=== PATIENT | female | born 1980 | race Caucasian/White ===

== ENCOUNTER 2019-02-13 12:33 | Emergency (ER) | payer OTHER ==
[2019-02-13 14:32] VITALS: BP 110/65
--- NOTE | 2019-02-13 14:32 | EDPHY ---
H & P Stated Complaint: 12 week , vaginal bleeding 1 day Time Seen by Provider: 02/13/19 12:48 HPI/ROS: This is O positive patient presents with vaginal bleeding with a first- trimester 11 weeks by dates with no OB evaluation or ultrasound so far. She reports onset of mild spotting yesterday followed by heavy bleeding today similar to menses with some dark appearing clots as well. She has not passed any tissue. She reports cramping that she ranks as 5/10 intensity and has not taken any medications for this. She is concerned about demise as she noticed that she lost breast tenderness about a week ago. She is accompanied by her today who brought her in by private vehicle for evaluation. ROS: Constitutional: No fevers HEENT: No complaints Pulmonary: No complaints Cardiovascular: No lightheadedness. GI: No nausea or vomiting : As per HPI. No other complaints. 10 point review of symptoms is performed and otherwise negative with exception of pertinent positives and negatives listed in HPI and ROS Source: Patient Exam Limitations: No limitations - Personal History LMP (Females 10-55): - Medical/Surgical History Hx Asthma: No Hx Chronic Respiratory Disease: No Hx Diabetes: No Hx Cardiac Disease: No Hx Renal Disease: No Hx Cirrhosis: No Hx Alcoholism: No Hx HIV/AIDS: No Hx Splenectomy or Spleen Trauma: No Other PMH: none. Patient has an appointment to see MIKI Woodall at [facility] this coming Saturday in 3 days. - Family History Significant Family History: No pertinent family hx - Social History Smoking Status: Current every day smoker (Patient was smoking half pack a day prior to learning that she was cut down to about 3-5 cigarettes a day thereafter) Alcohol Use: None Drug Use: None Additional Social History: The patient is a originally from [facility] and moved here 2 years ago. - Physical Exam Exam: General Appearance: Alert, no distress. Eyes: Pupils equal and round no pallor or injection. ENT, Mouth: Mucous membranes moist. Respiratory: There are no retractions, lungs are clear to auscultation. Cardiovascular: Regular rate and rhythm. Gastrointestinal: Abdomen is soft and nontender, no masses, bowel sounds normal. Neurological: GCS 15 Skin: Warm and dry, no rashes. Extremities are symmetrical, full range of motion. Psychiatric: Mood and affect are normal DIFFERENTIAL DIAGNOSIS: After history and physical exam differential diagnosis was considered for demise, threatened miscarriage, ectopic Constitutional: Initial Vital Signs Temperature (C) 37.2 C 02/13/19 12:46 Heart Rate 71 02/13/19 12:46 Respiratory Rate 18 02/13/19 12:46 Blood Pressure 105/74 02/13/19 12:46 O2 Sat (%) 96 02/13/19 12:46 O2 Delivery Mode Room Air Allergies/Adverse Reactions: No Known Allergies Allergy (Unverified 02/13/19 12:52) Home Medications: Medication Instructions Recorded FOLIC ACID 02/13/19 Medical Decision Making ED Course/Re-evaluation: Patient presented a card to documenting her blood type that she brought with her from [facility]-O positive She declined analgesics while here and remained stable. I informed her and her regarding the demise judging by dimensions on transabdominal ultrasound -8 half weeks. The patient was tearful. Answered all their questions. I spoke with Dr. Sparks, the OBGYN physician with whom she is scheduled to have her 1st appointment on Saturday. Dr. Hurtado should advises that the patient take nonsteroidal anti-inflammatories over the weekend for discomfort if needed with customary precautions And will see her on Saturday in the office. I spoke with Dr. Green-radiologist. He reports that trans abdominal images are consistent with demise-no heartbeat no motion and Doppler is negative for any flow. He explains that official study for this is an endovaginal exam but the patient declines an endovaginal exam at this time. Review of her labs reveals normal CBC. Urinalysis does not show significant abnormalities. She has no evidence of hypovolemic shock, anemia or other red flag findings today I think is safe for discharge home with plan as above. - Data Points Laboratory Results: 02/13/19 02/13/19 13:26 13:20 POC Sodium 142 mEq/L mEq/L (135-145) POC Potassium 3.6 mEq/L mEq/L (3.3-5.0) POC Chloride 110.0 mEq/L mEq/L (97-110) POC Total CO2 25 mEq/L mEq/L (22-31) POC BUN 7 mg/dL mg/dL (7-23) POC Creatinine 0.7 mg/dL mg/dL (0.6-1.0) POC Glucose 88 mg/dL mg/dL (70-100) POC Calcium 9.2 mg/dL mg/dL (8.5-10.4) Beta HCG, Quant Pending Point of Care Test Results: CBC CBC Collection Date 02/13/19 CBC Collection Time 13:20 WBC 7.03 RBC 4.74 HGB 15.0 HCT 43.5 PLT 304 Neut # 3.83 Neut 54.5 LYMPH # 2.54 LYMPH 36.1 MCV 91.8 Chemistry 02/13/19 13:26 POC Sodium 142 mEq/L mEq/L (135-145) POC Potassium 3.6 mEq/L mEq/L (3.3-5.0) POC Chloride 110.0 mEq/L mEq/L (97-110) POC Total CO2 25 mEq/L mEq/L (22-31) POC BUN 7 mg/dL mg/dL (7-23) POC Creatinine 0.7 mg/dL mg/dL (0.6-1.0) POC Glucose 88 mg/dL mg/dL (70-100) POC Calcium 9.2 mg/dL mg/dL (8.5-10.4) Urine Dip Collection Date 02/13/19 Collection Time 14:10 Specific [place] (1.002-1.030) 1.015 PH (5.0-7.5) 6.0 Leukocytes (Negative) Trace Nitrites (Negative) Positive Protein (Negative) Negative Glucose (Negative) Negative Ketones (Negative) Negative Urobilnogen (0.2-1.0 EU) 0.2 Bilirubin (Negative) Negative Blood (Negative) Trace Departure - Departure Disposition: Home, Routine, Self-Care Clinical Impression: demise due to miscarriage Condition: Fair Instructions: Miscarriage (ED) Additional Instructions: Diagnosis: Miscarriage ( demise at 8 1/2 weeks gestation) Plan: Ibuprofen or leave anti-inflammatory at a dose of 600 mg of ibuprofen per 6 hr or 2 leave 2 times a day for cramping or pain if needed You can also take Tylenol with this medication safely if needed. Follow-up with Dr. Sparks on Saturday a trip point time. Return emergency department if you have severe bleeding, unbearable pain despite above medications or other concerns. Referrals: NONE *PRIMARY CARE P,. [Primary Care Provider] - As per Instructions Bony Painting MD [Medical Doctor] - As per Instructions
== END 2019-02-13 14:47 | disposition home or self-care (01) ==
LOC: CED 12:33
DX: O03.9 Complete or unspecified spontaneous abortion without complication (principal); F17.200 Nicotine dependence, unspecified, uncomplicated; Z3A.11 11 weeks gestation of pregnancy
CPT/HCPCS: 80048-ER; 85025-QW-ER; 99284-ER